=== PATIENT | male | born 1945 | race Caucasian/White ===

== ENCOUNTER 2016-12-13 14:45 | Emergency (ER) | payer MEDICARE, OTHER ==
--- NOTE | 2016-12-13 15:59 | RADIOLOGY REPORT ---
HISTORY: Trauma with ankle pain. COMPARISON: None. FINDINGS: 3 views of the right ankle are obtained. There is a displaced fracture of the medial malleolus. There is a fracture involving the lateral and distal margin of the fibula occurring below the level of the tibiotalar joint. Small avulsion fractures are likely present along the lateral margin of the talus as well. 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 A plantar calcaneal enthesophyte is no efrem. No posterior malleolar fracture identified. IMPRESSION: Displaced medial malleolar fracture. Mildly displaced avulsion fractures of the distal fibula and lateral margin of the talus. Soft tissue swelling. Final Electronic Signature: This report was electronically signed by Salbador Robertson MD on 12/13/2016 3: 57 PM. [email or web address] /
--- NOTE | 2016-12-13 17:08 | ER NURSING DOCUMENTATION ---
Nurse's Notes [facility] Name:Kuldeep Cook Age:71 yrs Sex:Male :1945 Arrival Date:12/13/2016 Time:14:45 BedTrauma-B Private MD: Diagnosis:Bimalleolar Ankle Fracture Presentation: 12/13 14:48 Acuity: OPAL 2 st 14:59 Presenting complaint: Patient states: pt got tangled in a ladder as if fell over. pt st now has a right ankle swelling. Transition of care: Home. 14:59 Method Of Arrival: Private Vehicle st Triage Assessment: 15:02 General: Appears uncomfortable, Behavior is cooperative. Pain: Complains of pain in st right ankle Pain currently is 3 out of 10 on a pain scale. Aggravated by any movment. Cardiovascular: No deficits noted. Respiratory: No deficits noted. GI: No deficits noted. Musculoskeletal: Circulation, motion, and sensation intact Swelling present in right ankle. Historical: - Allergies: No known drug Allergies; - Home Meds: 1. statin 2. Januvia oral 3. multivitamin with minerals oral 4. Lipitor Oral 5. repaglinide oral - PMHx: DIABETES - NIDDM; HYPOTENSION; GERD; - Tetanus: unknown Other pt thinks it was 7 years ago. - Ebola Screening: : Patient denies exposure to infectious person. Patient denies travel to an Ebola-affected area in the 21 days before illness onset. . - Immunization history: Pneumococcal vaccine status is unknown. - Social history: Smoking status: Patient states was never smoker of tobacco. Patient/guardian denies using alcohol, marijuana. Screenin:03 Infectious Disease Risk None. Abuse screen: Denies threats or abuse. Denies injuries st from another. pt feels safe at home. Nutritional screening: No deficits noted. Assessment: 16:36 General: splint reapplied do to being to high at the knee the first time. . st Vital Signs: 15:02 BP 109 / 77; Pulse 90; Resp 16; Temp 98.1; Pulse Ox 93% on R/A; Pain 3/10; st [place] Coma Score: 15:03 Eye Response: spontaneous(4). Verbal Response: oriented(5). Motor Response: obeys st commands(6). Total: 15. ED Course: 14:46 Patient arrived in ED. ama 14:48 Soraya Xiong RN is Primary Nurse. st 14:[address] 14:59 Marike Burnette MD is Attending Physician. tl1 15:03 Valuables Remains with patient Patient has correct armband on for positive st identification. Placed in gown. Bed in low position. Call light in reach. Side rails up X 1. Ice pack to injury. 16:06 Maxx Segal DO is Referral Physician. tl1 16:24 Posterior lower leg splint applied on right leg. Sugar tong splint applied on right arm.st 17:00 Crutch training done. arc Administered Medications: 15:49 Drug: HYDROcodone-acetaminophen 5 mg-325 mg 2 tabs; Route: PO; st 17:06 Follow up: Response: Pain is decreased st Outcome: 16:06 Discharge ordered by . tl1 17:06 Discharged to home ambulatory, with crutches. st 17:06 Condition: improved 17:06 Discharge instructions given to patient, significant other, Instructed on crutch walking, discharge instructions, follow up and referral plans. medication usage, Prescriptions given X 2. 17:06 Patient [address] the ED. st 07/02 15:08 Discharge F/U Call: Unable to reach: no answer lc Signatures: Soraya Xiong RN RN st Coleman, Linda, RN RN lc Averdick, Andrew, Reg Reg Markie Escobar MD MD tl1 Alena Kim, Reg Reg arc
--- NOTE | 2016-12-13 17:08 | ER PHYSICIAN DOCUMENTATION ---
Physician Documentation [facility] Name:Kuldeep Cook Age:71 yrs Sex:Male :1945 Arrival Date:12/13/2016 Time:14:45 BedTrauma-B Private MD: Markie Lacy Disposition: 12/13 18:00 Chart complete. tl1 Disposition: 12/13/16 16:06 Discharged to Home/Self Care. Impression: Bimalleolar Ankle Fracture. - Condition is Good. - Discharge Instructions: FRACTURE, Ankle (General). - Prescriptions for Liberal 7.5- 325 mg Oral Tablet - take 1 tablet by ORAL route every 6 hours As needed; 20 tablet. Zofran 4 mg Oral Tablet - take 1-2 tablet by ORAL route every 4-6 hours As needed; 10 tablet. - Medical Reconciliation form form. - Follow up: Maxx Segal DO; When: 4- 6 days; Reason: Recheck today's complaints, Continuance of care. - Problem is new. - Symptoms have improved. - Notes: CALL DR SEGAL'S OFFICE TO MAKE ARRANGEMENTS TO BE SEEN ON THURSDAY, 12/17. KEEP RIGHT FOOT ELEVATED ABOVE YOUR HEART MUCH POSSIBLE UNTIL THEN HPI: 14:59 This 71 yrs old Male presents to ER with complaints of Ankle Injury - RIGHT. tl1 14:59 The patient presents with an injury. tl1 14:59 The complaints affect the right ankle. Onset: The symptom(s)/episode began/occurred tl1 suddenly, just prior to arrival. Context: The problem was sustained at home, The mechanism of injury is unknown. The patient is unable to bear weight. The patient is not able to ambulate. Associated signs and symptoms: The patient has no apparent associated signs or symptoms. He was up about 5-6 feet on a ladder when the ladder fell over. As he fell, he grabbed on to some trees before falling onto an uneven surface and somehow getting his right foot and ankle caught up in the ladder when he landed. He had immediate right ankle pain, but no other injury. he did not hit his head and has no neck pain. He denies back, chest, abdomen or other extremitry pain. Historical: - Allergies: No known drug Allergies; - Home Meds: 1. statin 2. Januvia oral 3. multivitamin with minerals oral 4. Lipitor Oral 5. repaglinide oral - PMHx: DIABETES - NIDDM; HYPOTENSION; GERD; - Tetanus: unknown Other pt thinks it was 7 years ago. - Ebola Screening: : Patient denies exposure to infectious person. Patient denies travel to an Ebola-affected area in the 21 days before illness onset. . - Immunization history: Pneumococcal vaccine status is unknown. - Social history: Smoking status: Patient states was never smoker of tobacco. Patient/guardian denies using alcohol, marijuana. ROS: 14:59 MS/extremity: Positive for pain, swelling, of the right ankle. tl1 14:59 All other systems are negative. Exam: 14:59 Head/Face: Normocephalic, atraumatic. tl1 Neck: Trachea midline, no thyromegaly or masses palpated, and no cervical lymphadenopathy. Supple, full range of motion without nuchal rigidity, or vertebral point tenderness. No Meningismus. Chest/axilla: Normal chest wall appearance and motion. Nontender with no deformity. No lesions are appreciated. Cardiovascular: Regular rate and rhythm with a normal S1 and S2. No gallops, murmurs, or rubs. Normal PMI, no JVD. No pulse deficits. Respiratory: Lungs have equal breath sounds bilaterally, clear to auscultation and percussion. No rales, rhonchi or wheezes noted. No increased work of breathing, no retractions or nasal flaring. Abdomen/GI: Soft, non-tender, with normal bowel sounds. No distension or tympany. No guarding or rebound. No evidence of tenderness throughout. 14:59 Back: No spinal tenderness. No costovertebral tenderness. Full range of motion. tl1 14:59 Constitutional: The patient appears alert, awake, well developed, well hydrated, well groomed, well nourished, in obvious distress, moderately distressed, in obvious pain, uncomfortable. 14:59 Musculoskeletal/extremity: Extremities: grossly normal except: noted in the right ankle: deformity, pain, swelling, tenderness. 14:59 Skin: Exam negative for acute changes. 14:59 Neuro: Exam negative for acute changes. Vital Signs: 15:02 BP 109 / 77; Pulse 90; Resp 16; Temp 98.1; Pulse Ox 93% on R/A; Pain 3/10; st [place] Coma Score: 15:03 Eye Response: spontaneous(4). Verbal Response: oriented(5). Motor Response: obeys st commands(6). Total: 15. Procedures: 14:59 Splinting: Splint applied to right ankle using Orthoglass splint, applied by tech. tl1 nurse. MDM: 14:59 Patient medically screened. tl1 14:59 Differential diagnosis: fracture, sprain. Data reviewed: vital signs, nurses notes, tl1 radiologic studies, plain films, and as a result, I will. Test interpretation: by ED physician or midlevel provider: plain radiologic studies. Counseling: I had a detailed discussion with the patient and/or guardian regarding: the historical points, exam findings, and any diagnostic results supporting the discharge/admit diagnosis, radiology results, the need for outpatient follow up, to return to the emergency department if symptoms worsen or persist or if there are any questions or concerns that arise at home. Physician consultation: Maxx Segal DO was called at 15:30, was contacted at 15:30, regarding patient's condition, outpatient follow-up, and will see patient in office, next week. 12/13 16:02 Order name: ANKLE; [address] [id number]; Complete Time: 16:05 EDMS 12/13 15:04 Order name: Ice Packs; Complete Time: 15:04 st 12/13 16:05 Order name: ORTHO: Splint; Complete Time: 16:24 tl1 Dispensed Medications: 15:49 Drug: HYDROcodone-acetaminophen 5 mg-325 mg 2 tabs; Route: PO; st 17:06 Follow up: Response: Pain is decreased st Signatures: Soraya Xiong RN RN st Leigh, Tom, MD MD tl1
== END 2016-12-13 17:07 | disposition home or self-care (01) ==
LOC: ER 14:45
DX: S82.841A Displaced bimalleolar fracture of right lower leg, initial encounter for closed fracture (principal); W11.XXXA Fall on and from ladder, initial encounter; Y92.018 Other place in single-family (private) house as the place of occurrence of the external cause; Y93.H9 Activity, other involving exterior property and land maintenance, building and construction; E11.9 Type 2 diabetes mellitus without complications; Z79.899 Other long term (current) drug therapy
CPT/HCPCS: 29105; 29515; 99282; 99283